=== PATIENT | male | born 1970 | race Hispanic/Latino ===

== ENCOUNTER 2018-08-21 12:26 | Emergency (ER) | payer MEDICAID ==
[2018-08-21 12:34] VITALS: BP 111/74; PULSE 93; RESP 18; TEMP 98.6; O2SAT 97
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
== END 2018-08-21 13:39 | disposition home or self-care (01) ==
LOC: C.ER 12:26
DX: S05.02XA Injury of conjunctiva and corneal abrasion without foreign body, left eye, initial encounter (principal); W20.8XXA Other cause of strike by thrown, projected or falling object, initial encounter